=== PATIENT | male | born 2000 | race Caucasian/White ===

== ENCOUNTER → 2022-10-19 | Outpatient (CLI) | payer OTHER ==
[~2022-10-19] MED LIST: ALBU90OI; DIPH12.5EL PO; FLUT44OIA; IBUP100S; LORA1SY; MOMENI; PRED15SY PO; PROM12.5S PR; RANI150EL PO; SULTRIEL
== END | disposition home or self-care (01) ==
LOC: LAB SHORT 09:17 → LAB 09:17
DX: J02.9 Acute pharyngitis, unspecified (principal)
CPT/HCPCS: 87081